=== PATIENT | male | born 1935 | race Asian ===

== ENCOUNTER 2017-01-02 10:17 | Inpatient (IN) | payer MEDICARE, OTHER ==
[~2017-01-02] VITALS: Ht 157.5 cm; Wt 43.4 kg
[~2017-01-02 10:17] MED LIST: CLON0.3T PO; FOLI1CAP2 PO; FOLI1TAB61 PO; MAG1TAB.8 PO; METO-323 PO; SEVEC800 PO
[2017-01-02 11:06] LABS: GLUCOSE,POINT OF CARE 128 MG/DL (70-110)
[2017-01-02 11:30] LABS: ANION GAP 32 mmol/L (8-16); CALCIUM, TOTAL 8.4 mg/dL (8.8-10.5); CARBON DIOXIDE 15 mmol/L (22-29); CHLORIDE 79 mmol/L (98-107); CREATININE 7.32 mg/dL (0.60-1.30); GLOMERULAR FILTR. RATE CALC 7 mL/min (>60); POTASSIUM 5.1 mmol/L (3.5-5.1); SODIUM SERUM 126 mmol/L (136-145); UREA NITROGEN, BLOOD 63 mg/dL (7-18)
[2017-01-02 11:44] LABS: ALANINE AMINOTRANSFERASE 114 U/L (12-78); ALBUMIN 3.6 g/dL (3.4-5.0); ASPARTATE AMINOTRANSFERASE 117 U/L (15-37); BILIRUBIN,TOTAL 0.5 mg/dL (0.1-1.0); CREATINE KINASE, TOTAL 85 U/L (39-308); TOTAL PROTEIN, SERUM 7.1 g/dL (6.4-8.2)
[2017-01-02 11:46] LABS: BASOPHILS % (AUTO) 0.2 % (0.0-2.0); EOSINOPHILS % (AUTO) 0.4 % (1.0-6.0); HEMATOCRIT 43.9 % (41-53); HEMOGLOBIN 13.9 g/dL (13.5-17.5); LYMPHOCYTES # (AUTO) 2.6 K/uL (1.0-4.8); LYMPHOCYTES % (AUTO) 27.7 % (22.0-44.0); MEAN CORPUSCULAR HEMOGLOBIN 26.2 pg (26.0-34.0); MEAN CORPUSCULAR HGB CONC 31.7 G/dL (31.0-37.0); MEAN CORPUSCULAR VOLUME 83 fL (80-100); MONOCYTES # (AUTO) 0.4 K/uL (0.1-1.0); MONOCYTES % (AUTO) 4.8 % (2.0-9.0); NEUTROPHILS # (AUTO) 6.2 K/uL (1.8-7.7); NEUTROPHILS % (AUTO) 66.9 % (40.0-70.0); PLATELET COUNT (AUTO) 403 K/uL (150-450); RED BLOOD CELL COUNT(AUTO) 5.31 MIL/uL (4.50-5.90); RED CELL DISTRIBUTION WIDTH 21.7 % (11.5-14.5); WHITE BLOOD COUNT (AUTO) 9.3 K/uL (4.5-11.0)
[2017-01-02 11:59] LABS: B-TYPE NATRIURETIC PEPTIDE 554 pg/mL (0-100)
[2017-01-02 11:59] LABS: INR 1.1 (0.9-1.1); PROTHROMBIN TIME 11.1 SEC (9.4-11.6)
[2017-01-02 12:22] LABS: RBC MORPHOLOGY COMMENT ABNORMAL RBC MORPH
[2017-01-02 12:29] LABS: CREATINE KINASE MB 2.6 ng/mL (0-5)
[2017-01-02] MEDS ORDERED: ACETAMINOPHEN 325 MG TABLET PO PRN (16:00)
[2017-01-02] MEDS ORDERED: ONDANSETRON HCL 4 MG/2 ML VIAL IVP PRN (16:00)
[2017-01-02] MEDS ORDERED: BISACODYL 10 MG RECTAL RECTAL SUPPOSITORY PR PRN (16:00)
[2017-01-02] MEDS: HEPARIN SODIUM,PORCINE 5,000 UNITS/ML VIAL SQ SCH ×2 (16:00→23:59)
[2017-01-02] MEDS ORDERED: MORPHINE SULFATE 2 MG/ML SYRINGE IVP PRN (16:00)
[2017-01-02 16:18] VITALS: BP 198/118
[2017-01-02] MEDS: METOCLOPRAMIDE HCL 5 MG/ML 2 ML VIAL IVP SCH ×2 (16:25→23:57)
[2017-01-02] MEDS ORDERED: ASPI1TAB7 PO (16:57)
[2017-01-02] MEDS ORDERED: MAG1TAB.8 PO (17:00)
[2017-01-02] MEDS ORDERED: ACET-2247 PO (17:00)
[2017-01-02] MEDS: SEVELAMER CARBONATE 800 MG TABLET PO SCH (18:00)
[2017-01-02 21:13] VITALS: BP 171/97
[2017-01-02] MEDS: DOCUSATE SODIUM 100 MG CAPSULE PO SCH (21:17)
[2017-01-02 22:17] LABS: OCCULT BLOOD,GASTRIC FLUID NEGATIVE (NEGATIVE)
[2017-01-02 23:05] VITALS: BP 145/99
[2017-01-03 04:03] VITALS: BP 145/74
[2017-01-03] MEDS: DOCUSATE SODIUM 100 MG CAPSULE PO SCH ×2 (08:32→20:14)
[2017-01-03] MEDS: METOPROLOL SUCCINATE 25 MG ER TABLET PO SCH (08:32)
[2017-01-03] MEDS: VITAMIN B COMP/VIT C/FOLIC ACID CAPSULE PO SCH (08:32)
[2017-01-03] MEDS: SEVELAMER CARBONATE 800 MG TABLET PO SCH ×3 (08:32→17:17)
[2017-01-03] MEDS: METOCLOPRAMIDE HCL 5 MG/ML 2 ML VIAL IVP SCH (08:32)
[2017-01-03] MEDS: PANTOPRAZOLE SODIUM 40 MG DR TABLET PO SCH (08:32)
[2017-01-03] MEDS: HEPARIN SODIUM,PORCINE 5,000 UNITS/ML VIAL SQ SCH ×3 (08:33→23:59)
[2017-01-03 08:35] VITALS: BP 127/65
[2017-01-03] MEDS ORDERED: ONDANSETRON HCL 4 MG/2 ML VIAL IVP PRN (09:45)
[2017-01-03] MEDS ORDERED: CYANOCOBALAMIN 1,000 MCG/ML VIAL IM ONE (09:45)
[2017-01-03] MEDS ORDERED: SODIUM CHLORIDE 0.9% 100 ML ONE (10:58)
[2017-01-03] MEDS: CefTRIAXone 1 GM/DEXTROSE 50 ML IV SCH (10:59)
[2017-01-03 11:47] LABS: APPEARANCE,URINE CLEAR (CLEAR); GLUCOSE, URINE (UA) NEGATIVE (NEGATIVE); KETONES,URINE NEGATIVE (NEGATIVE); LEUKOCYTE ESTERASE ,URINE NEGATIVE (NEGATIVE); OCCULT BLOOD,URINE MODERATE (NEGATIVE); PROTEIN,URINE SEE CONFIRM (NEGATIVE)
[2017-01-03 11:56] LABS: RBC,URINE 0-2 /HPF (0-2); SULFOSALICYLIC ACID,URINE 1+ (Negative)
[2017-01-03] MEDS: DIVALPROEX SODIUM 250 MG DR TABLET PO SCH ×2 (12:40→20:14)
[2017-01-03 13:00] VITALS: BP 151/66
[2017-01-03 19:45] VITALS: BP 140/82
[2017-01-03 23:06] VITALS: BP 120/61
[2017-01-04 04:40] VITALS: BP 126/64
[2017-01-04 07:17] VITALS: BP 162/89
[2017-01-04] MEDS: SEVELAMER CARBONATE 800 MG TABLET PO SCH ×3 (08:00→18:43)
[2017-01-04] MEDS: DOCUSATE SODIUM 100 MG CAPSULE PO SCH ×2 (09:00→20:13)
[2017-01-04] MEDS: PANTOPRAZOLE SODIUM 40 MG DR TABLET PO SCH (09:00)
[2017-01-04] MEDS: METOPROLOL SUCCINATE 25 MG ER TABLET PO SCH (09:00)
[2017-01-04] MEDS: DIVALPROEX SODIUM 250 MG DR TABLET PO SCH ×2 (09:00→20:13)
[2017-01-04] MEDS: VITAMIN B COMP/VIT C/FOLIC ACID CAPSULE PO SCH (09:00)
[2017-01-04 09:19] LABS: ORIG DRAW (USER) MSIMS
[2017-01-04] MEDS: [UNRECOGNIZED DRUG - REMARK] MISC SCH (09:45)
[2017-01-04 09:59] LABS: CALCIUM, TOTAL 7.8 mg/dL (8.8-10.5); CREATININE 7.99 mg/dL (0.60-1.30); POTASSIUM 5.2 mmol/L (3.5-5.1)
[2017-01-04 10:03] LABS: PHOSPHORUS 4.5 mg/dL (2.5-4.9)
[2017-01-04] MEDS: HEPARIN SODIUM,PORCINE 5,000 UNITS/ML VIAL SQ SCH ×3 (10:58→23:12)
[2017-01-04] MEDS: CefTRIAXone 1 GM/DEXTROSE 50 ML IV SCH (11:48)
[2017-01-04 12:00] VITALS: BP 134/79
[2017-01-04] MEDS ORDERED: MANNITOL 25%-12.5 GM/50 ML VIAL IVP PRN (13:30)
[2017-01-04] MEDS: HALOPERIDOL LACTATE 5 MG/ML VIAL IM PRN (13:30)
[2017-01-04] MEDS ORDERED: ALBUMIN HUMAN 25%-12.5GM/50ML IV BOTTLE IV PRN (13:30)
[2017-01-04 15:12] LABS: HEPATITIS Bs ANTIGEN SCREEN P Negative (Negative); HEPATITIS C AB SCREEN <0.1 s/co ratio (0.0-0.9)
[2017-01-04 16:58] VITALS: BP 183/73
[2017-01-04] MEDS ORDERED: MANNITOL 25%-12.5 GM/50 ML VIAL IVP ONE (17:05)
[2017-01-04] MEDS: RisperiDONE 0.5 MG TABLET PO PRN (20:13)
[2017-01-04 20:33] VITALS: BP 160/77
[2017-01-04] MEDS: ZOLPIDEM TARTRATE 5 MG TABLET PO PRN (23:13)
[2017-01-05] MEDS: HYDROCODONE/ACETAMINOPHEN 5-325 MG TABLET PO PRN (03:15)
[2017-01-05 03:20] VITALS: BP 120/98
[2017-01-05 03:29] VITALS: BP 120/98
[2017-01-05 07:06] LABS: HEMATOCRIT 30.4 % (41-53); HEMOGLOBIN 10.1 g/dL (13.5-17.5); MEAN CORPUSCULAR HEMOGLOBIN 26.8 pg (26.0-34.0); MEAN CORPUSCULAR HGB CONC 33.3 G/dL (31.0-37.0); MEAN CORPUSCULAR VOLUME 81 fL (80-100); PLATELET COUNT (AUTO) 267 K/uL (150-450); RED BLOOD CELL COUNT(AUTO) 3.78 MIL/uL (4.50-5.90); WHITE BLOOD COUNT (AUTO) 5.4 K/uL (4.5-11.0)
[2017-01-05 07:09] LABS: CREATININE 4.67 mg/dL (0.60-1.30); PHOSPHORUS 3.2 mg/dL (2.5-4.9); POTASSIUM 3.9 mmol/L (3.5-5.1)
[2017-01-05 08:00] VITALS: BP 105/77
[2017-01-05] MEDS: [UNRECOGNIZED DRUG - REMARK] MISC SCH (08:20)
[2017-01-05] MEDS: METOPROLOL SUCCINATE 25 MG ER TABLET PO SCH (08:23)
[2017-01-05] MEDS: PANTOPRAZOLE SODIUM 40 MG DR TABLET PO SCH (08:24)
[2017-01-05] MEDS: DIVALPROEX SODIUM 250 MG DR TABLET PO SCH ×2 (08:24→20:59)
[2017-01-05] MEDS: VITAMIN B COMP/VIT C/FOLIC ACID CAPSULE PO SCH (08:24)
[2017-01-05] MEDS: SEVELAMER CARBONATE 800 MG TABLET PO SCH ×3 (08:24→17:42)
[2017-01-05] MEDS: DOCUSATE SODIUM 100 MG CAPSULE PO SCH ×2 (08:24→20:58)
[2017-01-05] MEDS: HEPARIN SODIUM,PORCINE 5,000 UNITS/ML VIAL SQ SCH ×3 (08:25→23:30)
[2017-01-05 08:30] LABS: BAND NEUTROPHILS % (MANUAL) 1 % (1-5); EOSINOPHILS % (MANUAL) 2 % (1-6); LYMPHOCYTES % (MANUAL) 16 % (22-44); TOTAL CELLS COUNTED 100
[2017-01-05 08:31] LABS: RBC MORPHOLOGY COMMENT ABNORMAL R
[2017-01-05] MEDS: CefTRIAXone 1 GM/DEXTROSE 50 ML IV SCH (09:53)
[2017-01-05 12:00] VITALS: BP 116/70
[2017-01-05 17:34] VITALS: BP 137/66
[2017-01-05] MEDS: MAGNESIUM HYDROXIDE SUSPENSION 30 ML UDCUP PO PRN (17:42)
[2017-01-05] MEDS: HALOPERIDOL LACTATE 5 MG/ML VIAL IM PRN (23:27)
[2017-01-06] VITALS (7 sets, daily range): BP systolic 104–160; BP diastolic 43–90
[2017-01-06] MEDS: ZOLPIDEM TARTRATE 5 MG TABLET PO PRN (00:54)
[2017-01-06 01:02] LABS: GLUCOSE,POINT OF CARE 109 MG/DL (70-110)
[2017-01-06] MEDS: HEPARIN SODIUM,PORCINE 5,000 UNITS/ML VIAL SQ SCH ×3 (08:00→17:44)
[2017-01-06] MEDS: SEVELAMER CARBONATE 800 MG TABLET PO SCH ×3 (08:00→17:37)
[2017-01-06 08:04] LABS: CALCIUM, TOTAL 8.2 mg/dL (8.8-10.5); CREATININE 5.88 mg/dL (0.60-1.30); POTASSIUM 5.2 mmol/L (3.5-5.1)
[2017-01-06] MEDS: METOPROLOL SUCCINATE 25 MG ER TABLET PO SCH (09:00)
[2017-01-06] MEDS: [UNRECOGNIZED DRUG - REMARK] MISC SCH (09:00)
[2017-01-06] MEDS: DIVALPROEX SODIUM 250 MG DR TABLET PO SCH ×2 (09:00→17:37)
[2017-01-06] MEDS ORDERED: SODIUM CHLORIDE 0.9% 500 ML IV ONE (09:12)
[2017-01-06] MEDS: CefTRIAXone 1 GM/DEXTROSE 50 ML IV SCH (09:26)
[2017-01-06] MEDS: DOCUSATE SODIUM 100 MG CAPSULE PO SCH ×2 (09:26→20:57)
[2017-01-06] MEDS: VITAMIN B COMP/VIT C/FOLIC ACID CAPSULE PO SCH (09:27)
[2017-01-06] MEDS: PANTOPRAZOLE SODIUM 40 MG DR TABLET PO SCH (09:27)
[2017-01-06] MEDS ORDERED: MANNITOL 25%-12.5 GM/50 ML VIAL IVP ONE (10:00)
[2017-01-06] MEDS ORDERED: SODIUM CHLORIDE 0.9% 0 ML IV ONE (12:09)
[2017-01-06] MEDS ORDERED: SODIUM CHLORIDE 0.9% 1,000 ML IV ONE (12:10)
[2017-01-06] MEDS ORDERED: ALBUMIN HUMAN 25%-12.5GM/50ML IV BOTTLE IV PRN (12:45)
[2017-01-06] MEDS ORDERED: MANNITOL 25%-12.5 GM/50 ML VIAL IVP PRN (12:45)
[2017-01-06] MEDS: HALOPERIDOL LACTATE 5 MG/ML VIAL IM PRN ×2 (13:09→13:10)
[2017-01-06 13:34] LABS: HEPATITIS Bs ANTIGEN SCREEN P Negative (Negative); HEPATITIS C AB SCREEN <0.1 s/co ratio (0.0-0.9)
[2017-01-06] MEDS: EPOETIN ALFA 10,000 UNITS/ML 2 ML VIAL SQ SCH (18:32)
[2017-01-07] MEDS: HEPARIN SODIUM,PORCINE 5,000 UNITS/ML VIAL SQ SCH ×4 (00:49→22:37)
[2017-01-07] MEDS: DIVALPROEX SODIUM 250 MG DR TABLET PO SCH ×3 (00:50→22:31)
[2017-01-07 04:39] VITALS: BP 106/68
[2017-01-07 06:52] LABS: CALCIUM, TOTAL 7.9 mg/dL (8.8-10.5); CREATININE 3.72 mg/dL (0.60-1.30); PHOSPHORUS 2.7 mg/dL (2.5-4.9); POTASSIUM 3.9 mmol/L (3.5-5.1)
[2017-01-07] MEDS: SEVELAMER CARBONATE 800 MG TABLET PO SCH ×3 (08:00→18:38)
[2017-01-07] MEDS: [UNRECOGNIZED DRUG - REMARK] MISC SCH (09:00)
[2017-01-07] MEDS: VITAMIN B COMP/VIT C/FOLIC ACID CAPSULE PO SCH ×2 (09:00→12:50)
[2017-01-07] MEDS: DOCUSATE SODIUM 100 MG CAPSULE PO SCH ×3 (09:00→22:32)
[2017-01-07 10:35] VITALS: BP 106/56
[2017-01-07] MEDS: METOPROLOL SUCCINATE 25 MG ER TABLET PO SCH (12:50)
[2017-01-07] MEDS: PANTOPRAZOLE SODIUM 40 MG DR TABLET PO SCH (12:50)
[2017-01-07] MEDS: RisperiDONE 0.5 MG TABLET PO PRN (14:57)
[2017-01-07 19:27] VITALS: BP 114/65
[2017-01-08 05:47] VITALS: BP 116/69
[2017-01-08 06:10] LABS: CALCIUM, TOTAL 8.4 mg/dL (8.8-10.5); CREATININE 5.23 mg/dL (0.60-1.30); MAGNESIUM 2.9 mg/dL (1.80-2.40); PHOSPHORUS 2.6 mg/dL (2.5-4.9); POTASSIUM 3.9 mmol/L (3.5-5.1)
[2017-01-08 06:35] LABS: HEMATOCRIT 26.3 % (41-53); HEMOGLOBIN 8.6 g/dL (13.5-17.5); MEAN CORPUSCULAR HEMOGLOBIN 26.8 pg (26.0-34.0); MEAN CORPUSCULAR HGB CONC 32.6 G/dL (31.0-37.0); MEAN CORPUSCULAR VOLUME 82 fL (80-100); PLATELET COUNT (AUTO) 161 K/uL (150-450); RED CELL DISTRIBUTION WIDTH 21.2 % (11.5-14.5); WHITE BLOOD COUNT (AUTO) 3.1 K/uL (4.5-11.0)
[2017-01-08 07:35] VITALS: BP 109/52
[2017-01-08] MEDS: HEPARIN SODIUM,PORCINE 5,000 UNITS/ML VIAL SQ SCH ×3 (08:00→23:14)
[2017-01-08] MEDS: SEVELAMER CARBONATE 800 MG TABLET PO SCH ×4 (08:00→18:15)
[2017-01-08 08:42] LABS: LYMPHOCYTES % (MANUAL) 25 % (22-44); REACTIVE LYMPHOCYTES 1 % (0-0); TOTAL CELLS COUNTED 100
[2017-01-08] MEDS: DOCUSATE SODIUM 100 MG CAPSULE PO SCH ×3 (08:54→20:18)
[2017-01-08] MEDS: PANTOPRAZOLE SODIUM 40 MG DR TABLET PO SCH ×2 (08:54→10:08)
[2017-01-08] MEDS: DIVALPROEX SODIUM 250 MG DR TABLET PO SCH ×3 (08:54→20:18)
[2017-01-08] MEDS: METOPROLOL SUCCINATE 25 MG ER TABLET PO SCH (08:55)
[2017-01-08] MEDS: VITAMIN B COMP/VIT C/FOLIC ACID CAPSULE PO SCH ×2 (09:00→10:10)
[2017-01-08] MEDS: [UNRECOGNIZED DRUG - REMARK] MISC SCH (09:00)
[2017-01-08 09:02] LABS: GLUCOSE,POINT OF CARE 75 MG/DL (70-110)
[2017-01-08 12:12] VITALS: BP 101/55
[2017-01-08 12:17] LABS: GLUCOSE,POINT OF CARE 142 MG/DL (70-110)
[2017-01-08 16:03] VITALS: BP 137/68
[2017-01-08 19:45] VITALS: BP 131/71
[2017-01-08] MEDS: RisperiDONE 0.5 MG TABLET PO PRN (20:18)
[2017-01-08] MEDS: HYDROCODONE/ACETAMINOPHEN 5-325 MG TABLET PO PRN (20:18)
[2017-01-08 23:13] VITALS: BP 129/64
[2017-01-09 05:20] VITALS: BP 127/71
[2017-01-09 06:19] LABS: HEMATOCRIT 28.9 % (41-53); HEMOGLOBIN 9.2 g/dL (13.5-17.5); MEAN CORPUSCULAR HEMOGLOBIN 26.7 pg (26.0-34.0); MEAN CORPUSCULAR HGB CONC 31.7 G/dL (31.0-37.0); MEAN CORPUSCULAR VOLUME 84 fL (80-100); PLATELET COUNT (AUTO) 175 K/uL (150-450); RED BLOOD CELL COUNT(AUTO) 3.44 MIL/uL (4.50-5.90); RED CELL DISTRIBUTION WIDTH 20.9 % (11.5-14.5); WHITE BLOOD COUNT (AUTO) 3.3 K/uL (4.5-11.0)
[2017-01-09 06:40] LABS: ALBUMIN 2.7 g/dL (3.4-5.0); BILIRUBIN,TOTAL 0.4 mg/dL (0.1-1.0); CALCIUM, TOTAL 8.6 mg/dL (8.8-10.5); CREATININE 6.87 mg/dL (0.60-1.30); MAGNESIUM 3.2 mg/dL (1.80-2.40); PHOSPHORUS 2.9 mg/dL (2.5-4.9); POTASSIUM 4.1 mmol/L (3.5-5.1); TOTAL PROTEIN, SERUM 5.6 g/dL (6.4-8.2)
[2017-01-09] MEDS: VITAMIN B COMP/VIT C/FOLIC ACID CAPSULE PO SCH (08:13)
[2017-01-09] MEDS: MAGNESIUM HYDROXIDE SUSPENSION 30 ML UDCUP PO PRN (08:13)
[2017-01-09] MEDS: DOCUSATE SODIUM 100 MG CAPSULE PO SCH (08:13)
[2017-01-09] MEDS: METOPROLOL SUCCINATE 25 MG ER TABLET PO SCH (08:13)
[2017-01-09] MEDS: HEPARIN SODIUM,PORCINE 5,000 UNITS/ML VIAL SQ SCH (08:13)
[2017-01-09] MEDS: SEVELAMER CARBONATE 800 MG TABLET PO SCH ×2 (08:13→14:10)
[2017-01-09] MEDS: DIVALPROEX SODIUM 250 MG DR TABLET PO SCH (08:13)
[2017-01-09] MEDS: EPOETIN ALFA 10,000 UNITS/ML 2 ML VIAL SQ SCH (08:16)
[2017-01-09 08:21] VITALS: BP 126/68
[2017-01-09] MEDS: [UNRECOGNIZED DRUG - REMARK] MISC SCH (09:00)
[2017-01-09 09:12] LABS: LYMPHOCYTES % (MANUAL) 26 % (22-44); RBC MORPHOLOGY COMMENT ABNORMAL R; TOTAL CELLS COUNTED 100
[2017-01-09] MEDS ORDERED: SODIUM CHLORIDE 0.9% 2,000 ML IV ONE (09:52)
[2017-01-11] MEDS ORDERED: EPOETIN ALFA 10,000 UNITS/ML 2 ML VIAL SQ SCH (09:00)
== END 2017-01-09 15:55 | DRG 682 ==
LOC: EMS 10:18 → 5S 14:50 → 5N 14:50 → 5S 21:27 → 6N 01-05 23:00
PROVIDERS: ADMIT Internal Medicine; ATTEND Internal Medicine
PROC: 5A1D60Z (ICD-10-PCS; principal; 2017-01-02)
DX: I12.0 Hypertensive chronic kidney disease with stage 5 chronic kidney disease or end stage renal disease (principal); N18.6 End stage renal disease; E43 Unspecified severe protein-calorie malnutrition; G93.41 Metabolic encephalopathy; D61.811 Other drug-induced pancytopenia; E87.1 Hypo-osmolality and hyponatremia; Z68.1 Body mass index [BMI] 19.9 or less, adult; D63.1 Anemia in chronic kidney disease; R62.7 Adult failure to thrive; E21.3 Hyperparathyroidism, unspecified; F17.210 Nicotine dependence, cigarettes, uncomplicated; N25.0 Renal osteodystrophy; G89.29 Other chronic pain; M89.8X9 Other specified disorders of bone, unspecified site; G31.84 Mild cognitive impairment of uncertain or unknown etiology; R74.0 Nonspecific elevation of levels of transaminase and lactic acid dehydrogenase [LDH]; K40.90 Unilateral inguinal hernia, without obstruction or gangrene, not specified as recurrent; R10.9 Unspecified abdominal pain; T42.6X5A Adverse effect of other antiepileptic and sedative-hypnotic drugs, initial encounter; X58.XXXA Exposure to other specified factors, initial encounter; Z99.2 Dependence on renal dialysis; Z88.0 Allergy status to penicillin; Z88.8 Allergy status to other drugs, medicaments and biological substances; Z79.899 Other long term (current) drug therapy; Z98.49 Cataract extraction status, unspecified eye; Z98.890 Other specified postprocedural states; Z87.81 Personal history of (healed) traumatic fracture; Y93.89 Activity, other specified; Y92.89 Other specified places as the place of occurrence of the external cause; Y99.8 Other external cause status
CPT/HCPCS: 70450; 76700; 80074; 82271; 82962; 83735; 83970; 84100; 84460; 87081; 87389; 90935; 93005; 97116; 97163; 97530; 99285; J0696; J0885; J1630; J1644; J2150; J2270; J2405; J2765; J3420; J7030; J7040; J7050

== ENCOUNTER 2017-05-08 12:43 | Emergency (ER) | payer MEDICARE, OTHER ==
[~2017-05-08] VITALS: Ht 152.4 cm; Wt 5.9 kg
[~2017-05-08 12:43] MED LIST changes: +ACET-2247 PO; +ASPI1TAB7 PO; -FOLI1TAB61 PO
[2017-05-08 14:53] LABS: BASOPHILS % (AUTO) 0.3 % (0.0-2.0); EOSINOPHILS % (AUTO) 7.8 % (1.0-6.0); HEMATOCRIT 32.7 % (41-53); HEMOGLOBIN 10.7 g/dL (13.5-17.5); LYMPHOCYTES # (AUTO) 1.5 K/uL (1.0-4.8); LYMPHOCYTES % (AUTO) 17.1 % (22.0-44.0); MEAN CORPUSCULAR HEMOGLOBIN 28.5 pg (26.0-34.0); MEAN CORPUSCULAR HGB CONC 32.8 G/dL (31.0-37.0); MEAN CORPUSCULAR VOLUME 87 fL (80-100); MONOCYTES % (AUTO) 11.9 % (2.0-9.0); NEUTROPHILS # (AUTO) 5.5 K/uL (1.8-7.7); NEUTROPHILS % (AUTO) 62.9 % (40.0-70.0); PLATELET COUNT (AUTO) 289 K/uL (150-450); RED BLOOD CELL COUNT(AUTO) 3.77 MIL/uL (4.50-5.90); RED CELL DISTRIBUTION WIDTH 23.8 % (11.5-14.5); WHITE BLOOD COUNT (AUTO) 8.7 K/uL (4.5-11.0)
[2017-05-08 14:56] LABS: CALCIUM, TOTAL 8.6 mg/dL (8.8-10.5); CREATININE 3.95 mg/dL (0.60-1.30); POTASSIUM 3.2 mmol/L (3.5-5.1)
[2017-05-08 15:02] LABS: ALBUMIN 3.3 g/dL (3.4-5.0); BILIRUBIN,TOTAL 0.3 mg/dL (0.1-1.0); TOTAL PROTEIN, SERUM 6.6 g/dL (6.4-8.2)
[2017-05-08 15:18] LABS: RBC MORPHOLOGY COMMENT ABNORMAL RBC MORPH
[2017-05-08 15:25] VITALS: BP 146/87
[2017-05-08] MEDS ORDERED: ACETAMINOPHEN 500 MG TABLET PO ONE (16:30)
== END 2017-05-08 16:58 | disposition home or self-care (01) ==
LOC: EMS 12:45
DX: S22.42XA Multiple fractures of ribs, left side, initial encounter for closed fracture (principal); I12.0 Hypertensive chronic kidney disease with stage 5 chronic kidney disease or end stage renal disease; N18.6 End stage renal disease; I48.91 Unspecified atrial fibrillation; F17.210 Nicotine dependence, cigarettes, uncomplicated; Z99.2 Dependence on renal dialysis; Z88.0 Allergy status to penicillin; Z88.8 Allergy status to other drugs, medicaments and biological substances; W19.XXXA Unspecified fall, initial encounter; Y93.89 Activity, other specified; Y92.89 Other specified places as the place of occurrence of the external cause; Y99.8 Other external cause status
CPT/HCPCS: 71101; 93005; 99285